=== PATIENT | male | born 1955 | race Caucasian/White ===

== ENCOUNTER 2016-04-06 07:57 | Emergency (ER) | payer OTHER ==
[~2016-04-06] VITALS: Wt 80.0 kg
--- NOTE | 2016-04-06 08:45 | ERD ---
ER Documentation Chief Complaint Date/Time DATE: 04/06/16 TIME: 08:25 Chief Complaint SORE THROAT FOR THE PAST FEW DAYS. UNABLE TO SWALLOW, NO STRIDOR HPI 60 y/o male presents to ED for sore throat since Sunday. Pain was described as achy non-radiating with a rate of 10/10 whenever he swallows. Reports that he has difficulty swallowing. Denies headache, loss of consciousness, dizziness, blurry vision, changes in vision, photophobia, facial pain, ear pain, neck pain, shoulder pain, chest pain , cough, hemoptysis, abdominal pain, back pain, loss of appetite, nausea, vomiting, hematochezia, diarrhea, constipation, urinary symptoms, bladder and bowel incontinences, extremity weakness, extremity tenderness, numbness or tingling sensation, difficulty walking, recent travel, recent exposure to illness, recent antibiotic use in the last 3 months, fever, chills. Hard of hearing; states that he forgot his hearing aids. Allergy: NKA PMH: Cataract Medications: Denies Surgery: Rectal fistula, right cataract surgery Family history: Denies Primary Social History: Does not work at this time Denies smoking/secondhand smoking exposure, use of alcohol, use of illegal drugs. ROS All systems reviewed and are negative except as per history of present illness. Allergies Allergies: Coded Allergies: No Known Allergy (Unverified , 04/06/16) PMhx/Soc Cataract Hx Alcohol Use: No Hx Substance Use: No Hx Tobacco Use: No FmHx Denies Physical Exam Vitals Vital Signs Date Time Temp Pulse Resp B/P Pulse Ox O2 Delivery O2 Flow Rate FiO2 04/06/16 08:07 98.8 84 21 150/83 98 Physical Exam CONSTITUTIONAL: Well-appearing; well-nourished; in no apparent distress. HEAD: Normocephalic; atraumatic. EYES: Conjunctiva clear, sclera non-icteric, EOM intact. PERRL Ears: Hearing intact. EACs clear, TMs non-bulging, non-inflamed, translucent & mobile, ossicles normal appearance, No obstructions, no erythema, no discharges Nose: No obstructions. No polyps. No external lesions. Mucosa non-inflamed. No external lesions, septum and turbinates normal. No rhinorrhea. No discharges. Frontal sinus is non-tender to palpation. Maxillary sinus is non-tender to palpation. MOUTH: Moist mucous membranes, no lesion, no obstructions, no vesicles, no thrush, patent airway Throat: Uvula in midline and not obviously displaced. Right tonsil is +3 with erythema, no exudate. Left tonsil is +1 with no erythema, no exudate. Tolerating secretions well. Good gag reflex. Patent airway. Neck: Supple, without lesions, bruits, or adenopathy. No mass. Thyroid non- enlarged and non-tender to palpation. Has posterior right cervical lymphadenopathy. Good and full range of motion of neck. CHEST: Symmetrical chest. Respirations even and not labored. No retractions noted. CARDIOVASCULAR: Normal S1, S2. RRR. No murmurs, gallops. RESPIRATORY: Normal chest excursion with respiration; breath sounds clear and equal bilaterally; no wheezes, rhonchi, or rales. Breathing even and unlabored. Speaking in clear, full, and complete sentences w/ ease. ABDOMEN: Normal bowel sounds normal. Soft, round, non-distended, non-guarding, no tenderness, no rebound, no organomegaly, no masses, no pulsating abdominal mass. No hernia. No peritoneal signs. : No CVA tenderness. BACK: Symmetrical shoulder. Spine is midline without deformity, tenderness. No evidence of trauma or deformity. PELVIS: Stable pelvis. No evidence of trauma or deformity. MUSCULOSKELETAL: Normal gait and station. No misalignment, asymmetry, crepitation, defects, tenderness, masses, effusions, decreased range of motion, instability, atrophy or abnormal strength or tone in the head, neck, spine, ribs , pelvis or extremities. No calf tenderness. NEUROVASCULAR: Distal pulses are present. Pedal pulse are present, equal, and normal. Capillary refills are < 2 seconds. NEUROLOGIC: Alert and oriented x4. Speaks full and clear sentences. Cranial Nerves II-XII normal. Sensation to pain, touch, and proprioception normal. Grossly unremarkable. No neurologic deficits. Romberg test is negative. PSYCHOLOGICAL: The patients mood and manner are appropriate. No hallucinations , delusions. Not SI. Not HI. Has the capacity to decide for self SKIN: Normal for age and ethnicity; warm; dry; good turgor; no apparent lesions or exudates. No rashes, hives, discoloration. Intact. Result Diagram: 1/26/17 0855 1/26/17 0855 Results 24 hrs Laboratory Tests Test 04/06/16 08:55 Anion Gap 19 Basophils # 0.010^3/ul Basophils % 0.1% Blood Urea Nitrogen 10mg/dl Calcium Level 9.6mg/dl Carbon Dioxide Level 29mmol/L Chloride Level 101mmol/L Creatinine 0.84mg/dl Eosinophils # 0.010^3/ul Eosinophils % 0.2% Glucose Level 110mg/dl Hematocrit 47.0% Hemoglobin 16.0g/dl Lymphocytes # 1.910^3/ul Lymphocytes % 9.9% Mean Corpuscular Hemoglobin 32.1pg Mean Corpuscular Hemoglobin Concent 34.1g/dl Mean Corpuscular Volume 94.2fl Mean Platelet Volume 9.1fl Monocytes # 1.610^3/ul Monocytes % 8.8% Neutrophils # 15.110^3/ul Neutrophils % 81.0% Nucleated Red Blood Cells # 0.010^3/ul Nucleated Red Blood Cells % 0.0/100WBC Platelet Count 85296^3/UL Potassium Level 4.8mmol/L Red Blood Count 5.0010^6/ul Red Cell Distribution Width 13.0% Sodium Level 144mmol/L White Blood Count 18.710^3/ul Current Medications Medications (Trade) Dose Ordered Sig/Felipe Route PRN Reason Start Time Stop Time Status Last Admin Dose Admin IV Flush 10 ml 10 ml STK-MED ONCE .ROUTE 04/06/16 09:55 04/06/16 09:56 DC 04/06/16 10:12 Sodium Chloride (NS) 100 ml @ ud STK-MED ONCE .ROUTE 04/06/16 09:55 04/06/16 09:56 DC 04/06/16 10:12 Iohexol (Omnipaque 300mg/ ml) 150 ml STK-MED ONCE .ROUTE 04/06/16 09:55 04/06/16 09:56 DC 04/06/16 10:13 Procedures/MDM Examination: Throat: Uvula in midline and not obviously displaced. Right tonsil is +3 with erythema, no exudate. Left tonsil is +1 with no erythema, no exudate. Tolerating secretions well. Good gag reflex. Patent airway. Neck: Supple, without lesions, bruits, or adenopathy. No mass. Thyroid non- enlarged and non-tender to palpation. Has posterior right cervical lymphadenopathy. Good and full range of motion of neck. CHEST: Symmetrical chest. Respirations even and not labored. No retractions noted. Case, history, physical findings was discussed with Dr. Lisa Alba. She recommended CT with IV contrast of neck (soft tissue). Disease process, medical treatment was explained to the patient. He verbalized understanding and agreed with the diagnostic tests, medical treatment, and follow-up care. Radiology: CT scan of the neck/soft tissue with contrast revealed FINDINGS: There is approximately 2.5 x 2.5 x 3.5 cm (transverse x AP x craniocaudal) mass in the region of the right palatine tonsil. The mass infiltrates the anterior and posterior pillars with posterior extension to the right posterior oropharyngeal wall. The superior aspect of the tumor is not well evaluated due to dental artifacts. The mass invades the right parapharyngeal fat. Anteriorly , the mass extends into the glossotonsillar sulcus without infiltration into the tongue base. Inferiorly, the mass extends to the level of epiglottis occupying the right vallecula. There is approximately 1.5 x 1.1 cm right level II a lymphadenopathy. The infraglottic larynx, and trachea are unremarkable. No airway compromise is seen. The parotid glands, submandibular glands, and thyroid gland are all normal. Imaging obtained through the lung apices revealed no acute abnormality. The surrounding soft tissues and muscles are unremarkable as well. IMPRESSION: 1. Approximately 2.5 x 3.5 cm right tonsillar mass, as detailed above. 2. Approximately 1.5 cm right level II a lymphadenopathy. Blood works unremarkable except WBC is 18.7 Blood test results, diagnostic test results was discussed with Dr. Lisa Waddell who agreed to take and evaluate the patient. Treatment: Consultation: Differential diagnosis: Peritonsillar abscess versus strep throat versus viral pharyngitis Medical decision [email or web address] y/o male presents to ED for sore throat since Sunday. Pain was described as achy non-radiating with a rate of 10/10 whenever he swallows. Reports that he has difficulty swallowing. Patient's complaint, history, diagnostic test results are consistent with my final diagnosis of tonsillar mass. Departure Diagnosis: Primary Impression: Tonsillar mass Condition: Stable SOBEIDA DONG Apr 06, 2016 08:45 not limited to: any new symptoms; shortness of breath/difficulty of breathing; cardiovascular changes; severe gastrointestinal symptoms; signs and symptoms of bleeding and or infection; signs of compartment syndrome/neurovascular changes; neurological changes/deficits. Patient and family member verbalized understanding. Upon discharge, patient is alert and oriented x 4, speaks full and clear sentences, denies pain, has no neurological deficits, has no neurovascular deficits, difficulty of breathing. Breathing even and unlabored. Lung sounds are clear to auscultation. Not in distress. Appears comfortable. Ambulatory with steady gait. Appears satisfied with care provided here in ED. Departure Condition: Stable SOBEIDA DONG Apr 06, 2016 08:45
[2016-04-06 09:28] LABS: BASOPHILS % 0.1 % (0.0-2.0); EOSINOPHILS % 0.2 % (0.0-7.0); LYMPHOCYTES # 1.9 10^3/ul (0.8-2.9); LYMPHOCYTES % 9.9 % (15.0-51.0); MEAN CORPUSCULAR HEMOGLOBIN 32.1 pg (29.0-33.0); MEAN CORPUSCULAR HGB CONC 34.1 g/dl (32.0-37.0); MEAN CORPUSCULAR VOLUME 94.2 fl (82.0-101.0); MEAN PLATELET VOLUME 9.1 fl (7.4-10.4); MONOCYTE # 1.6 10^3/ul (0.3-0.9); MONOCYTES % 8.8 % (0.0-11.0); NEUTROPHIL # 15.1 10^3/ul (1.6-7.5); PLATELET COUNT 239 10^3/UL (140-440); POTASSIUM 4.8 mmol/L (3.5-5.1); UNCORRECTED WBC 18.7 10^3/ul (4.8-10.8); WHITE BLOOD COUNT 18.7 10^3/ul (4.8-10.8)
[2016-04-06 09:31] LABS: CREATININE 0.84 mg/dl (0.61-1.24)
[2016-04-06 09:32] LABS: CALCIUM 9.6 mg/dl (8.4-10.2)
[2016-04-06 09:35] LABS: CONDITION 1
[2016-04-06] MEDS ORDERED: IOHEXOL 300MG/ML 150 ML BTL ONE (09:55)
[2016-04-06] MEDS ORDERED: SOD CHLORIDE 0.9% 100 ML ONE (09:55)
--- NOTE | 2016-04-06 10:43 | RADRPT ---
PROCEDURE: CT scan of the neck with contrast. CLINICAL INDICATION: Difficulty swallowing. TECHNIQUE: CT scan of the neck was performed on the [employer] volumetric 64-slice scanner . Contiguous ax ial images were obtained throughout the neck with coronal and sagittal reformatted images. 85 cc of Omnipaque 300 was administered. The exam CTDI = 9.37 and the DLP equals 311.66 mGy-cm. One or more of the following dose reduction techniques were used: Automated exposure control. Adjustment of the mA and/or kV according to patient size. Use of iterative reconstruction technique. COMPARISON: None available FINDINGS: There is approximately 2.5 x 2.5 x 3.5 cm (transverse x AP x craniocaudal) mass in the region of the right palatine tonsil. The mass infiltrates the anterior and posterior pillars with posterior exte nsion to the right posterior oropharyngeal wall. The superior aspect of the tumor is not well evalu ated due to dental artifacts. The mass invades the right parapharyngeal fat. Anteriorly, the mass extends into the glossotonsillar sulcus without infiltration into the tongue base. Inferiorly, the m ass extends to the level of epiglottis occupying the right vallecula. There is approximately 1.5 x 1 .1 cm right level II a lymphadenopathy. The infraglottic larynx, and trachea are unremarkable. No airway compromise is seen. The parotid gl ands, submandibular glands, and thyroid gland are all normal. Imaging obtained through the lung api matilda revealed no acute abnormality. The surrounding soft tissues and muscles are unremarkable as we ll. IMPRESSION: 1. Approximately 2.5 x 3.5 cm right tonsillar mass, as detailed above. 2. Approximately 1.5 cm right level II a lymphadenopathy. RPTAT: BB .Karen Vargas MD, MD Date Time Electronically viewed and signed by .Karen Vargas MD, MD on 04/06/2016 10:42 .O/
[2016-04-06] MEDS ORDERED: PIPER-TAZO 3.375 GM IV (PMX) 100 ML IVPB STA (11:30)
[2016-04-06 13:07] LABS: INR 1.01; PROTIME 13.3 Sec (12.2-14.2)
[2016-04-06 13:08] LABS: PARTIAL THROMBOPLASTIN TIME 36.1 Sec (25.0-35.0)
--- NOTE | 2016-04-06 13:11 | EN ---
Date/Time of Note Date/Time of Note DATE: 04/06/16 TIME: 13:08 ER Progress Note This is a 60-year-old male that had been seen and evaluated by the physician court assistant. I was asked to further evaluate the patient due to the severity of his symptoms. Evaluated the patient on physical exam he did have significant swelling of the right tonsil and uvula was not completely displaced. There is no stridor. The patient had no trismus and no evidence or physical exam findings to suggest Marcin's angina. I did feel is necessary to obtain a CT scan of the neck in order to rule out a deep space abscess infection. The patient did have a 2.5 x 2.5 x 3.5 mass that was in the right tonsil. There is no airway compromise sedation. The patient had leukocytosis with white blood count of 18.4. Therefore I did feel the patient required an ENT specialist in order to obtain a biopsy to rule out the possibility of cancer. My clinical suspicion was likely result of an infection and after the patient was given IV Zosyn. I did feel the patient was stable for transfer and he will be transferred under the care of Dr. Sutton to [facility]. 12 Lead EKG tracing ordered and reviewed by myself showed: Normal sinus rhythm of 76 bpm and no arrhythmia. ND interval normal. QRS duration normal. No ST segment elevation. PVC No ST segment depression. No changes consistent with acute ischemia. Final disposition. The patient will be transferred in serious condition to [facility]. Overall clinical impression. Tonsillar abscess LOLA CINTRON Apr 06, 2016 13:11
[2016-04-06] MEDS ORDERED: DEXAMETHASONE 10 MG/ML 1 ML INJ IV ONE (13:30)
[2016-04-06 14:17] VITALS: BP 143/71; PULSE 74; RESP 18
== END 2016-04-06 17:45 | disposition short-term general hospital (02) ==
LOC: FTE 07:57 → E/R 17:45
DX: J35.8 Other chronic diseases of tonsils and adenoids (principal)
CPT/HCPCS: 70491; 80048; 84484; 85025; 85610; 85730; 87040; 87880; 93005; J1100; J2543; Q9967; Z7610; 96374; 96375